=== PATIENT | male | born 1985 | race Caucasian/White ===

== ENCOUNTER 2023-03-13 11:04 | Emergency (ER) | payer OTHER, SELFPAY ==
[2023-03-13 11:07] VITALS: BP 150/94; PULSE 68; RESP 20; TEMP 36.6; O2SAT 100; BMI 30.4
--- NOTE | 2023-03-13 11:21 | CT_ITS ---
[facility] [id number] Patient Name: ABIMBOLA VASQUEZ MRN: [id number] date: 1985 Sex: M Assigned Patient Location: ER Current Patient Location: ER Accession/Order Number: [id number] Exam Date: 03/13/2023 11:45 Report Date: 03/13/2023 12:33 At the request of: EDGARDO LE Procedure: CT abdomen pelvis wo con CT abdomen pelvis wo con, 03/13/2023 11:45 AM EST INDICATION: Abdominal pain. Right flank pain, right lower quadrant pain. COMPARISON: No prior CT scan of the abdomen and pelvis available for comparison at the time of this dictation. TECHNIQUE: Axial images of the abdomen and pelvis were obtained without IV contrast. Multiplanar reformatted images were generated and reviewed as needed. Dose reduction techniques were achieved by using automated exposure control and/or adjustment of mA and/or kV according to patient size and/or use of iterative reconstruction technique. FINDINGS: No consolidation or effusion. Simple cyst at the hepatic dome. Gallbladder, pancreas and adrenals are unremarkable. The spleen is 20 cm in craniocaudal dimension. No nephrolithiasis. Mild right perinephric and periureteral fat stranding. Mild right collecting system dilatation. No urolithiasis. No urinary bladder wall thickening or stranding. The prostate gland is upper limits of normal for size. Seminal vesicles unremarkable. No aortic aneurysm. No bowel obstruction or acute focal inflammation. Normal appendix. No pneumatosis, pneumoperitoneum or ascites. No mesenteric or retroperitoneal lymphadenopathy. No acute fracture or dislocation. CT/CT abdomen pelvis wo con IMPRESSION: 1. Mild right hydroureteronephrosis with mild perinephric and periureteral fat stranding. Differential considerations include recently passed right renal calculus, pyelonephritis. 2. Splenomegaly. Electronically authenticated by: BASSAM DAN Date: 03/13/2023 12:33
[2023-03-13] MEDS: HYDROMORPHONE HCL 1 MG/ML CARTRIDGE IV (11:33)
[2023-03-13] MEDS: ONDANSETRON PF 4 MG/2 ML VIAL IV (11:33)
[2023-03-13] MEDS: KETOROLAC TROMETHAMINE 30 MG/ML VIAL IVP (11:34)
[2023-03-13 11:45] LABS: Basophils Absolute Auto 0.1 10^3/uL (0.0-0.1); Basophils Percent Auto 0.6 % (0.2-2.0); Eosinophils Absolute Auto 0.1 10^3/uL (0.0-0.7); Eosinophils Percent Auto 0.6 % (0.9-7.0); Hematocrit 39.1 % (42.0-54.0); Immature Granulocytes Abs Auto 0.17 10^3/uL (0.00-0.03); Immature Granulocytes Pct Auto 1.6 % (0.0-0.5); Lymphocytes Percent Auto 18.8 % (20.5-60.0); Mean Corpuscular HGB Conc 35.8 g/dL (29.9-35.2); Mean Corpuscular Hemoglobin 33.3 pg (25.9-34.0); Mean Corpuscular Volume 93.1 fL (80.0-94.0); Mean Platelet Volume 10.1 fL (9.5-13.5); Monocytes Absolute Auto 0.7 10^3/uL (0.3-0.8); Monocytes Percent Auto 6.3 % (1.7-12.0); Neutrophils Absolute Auto 7.8 10^3/uL (1.4-6.5); Neutrophils Percent Auto 72.1 % (43.0-75.0); Platelet Count 165 10^3/uL (150-450); Red Cell Distribution Width 15.7 % (11.0-15.0); White Blood Count 10.9 10^3/uL (4.0-11.0)
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
[2023-03-13 11:54] LABS: Alanine Aminotransferase 23 U/L (16-63); Albumin Level 4.5 g/dL (3.4-5.0); Alkaline Phosphatase 67 U/L (46-116); Anion Gap 19.7; Aspartate Amino Transferase 29 U/L (15-37); BUN Creatinine Ratio 16.8; Bilirubin Total 4.3 mg/dL (0.2-1.0); Calcium 8.7 mg/dL (8.5-10.1); Carbon Dioxide 22.4 mmol/L (21.0-32.0); Chloride 104 mmol/L (98-107); Estimated GFR (African America >60 (>=60); Estimated GFR (Non-African Ame >60 (>=60); Globulin 2.3 g/dL; Glucose 147 mg/dL (74-106); Potassium 4.1 mmol/L (3.5-5.1); Sodium 142 mmol/L (136-145); Total Protein 6.8 g/dL (6.4-8.2)
== END 2023-03-13 13:52 | disposition home or self-care (01) ==
PROVIDERS: Emergency Provider Emergency Medicine Emergency Medical Services
DX: N20.0 Calculus of kidney (principal)
CPT/HCPCS: 36415; 74176; 80053; 85025; 96374; 96375; 99284; J1170